=== PATIENT | female | born 1965 | race Hispanic/Latino ===

== ENCOUNTER 2022-06-26 20:17 | Emergency (ER) | payer BC ==
[~2022-06-26] VITALS: Ht 170.2 cm; Wt 104.8 kg
[2022-06-26] MEDS ORDERED: Morphine 4mg INJECTION 4 MG/ML INJ ONE (21:43)
[2022-06-26] MEDS ORDERED: Morphine 2mg Syringe 2 MG/ML SYR IV ONE (21:51)
[2022-06-26] MEDS ORDERED: ONDANSETRON HCL INJ 2MG/ML 2ML 2 MG/ML VIAL IV STA (21:52)
[2022-06-26] MEDS ORDERED: DICYCLOMINE HCL10 MG PO (22:10)
[2022-06-26 22:17] VITALS: BP 140/86
== END 2022-06-26 22:17 | disposition home or self-care (01) ==
LOC: FSED 20:32
DX: R10.31 Right lower quadrant pain (principal); M54.50 Low back pain, unspecified; K57.30 Diverticulosis of large intestine without perforation or abscess without bleeding; R16.1 Splenomegaly, not elsewhere classified
CPT/HCPCS: 74176; 80048; 80076; 81003; 85025; 96374; 96376; 99284; J2270; J2405

== ENCOUNTER 2024-06-30 10:23 | Emergency (ER) | payer BC, OTHER ==
[~2024-06-30] VITALS: Ht 170.2 cm; Wt 96.3 kg
[~2024-06-30 10:23] MED LIST: DICYCLOMINE HCL10 MG PO
[2024-06-30] MEDS ORDERED: NEURONTIN100 MG PO (11:12)
[2024-06-30] MEDS ORDERED: HYDROCODON-ACE1 EAC9 (11:12)
[2024-06-30] MEDS ORDERED: TIZANIDINE HCL4 M1 PO (11:12)
[2024-06-30] MEDS ORDERED: KEFLEX125 MG/5 M PO (11:13)
[2024-06-30 11:24] VITALS: PULSE 65; RESP 16; TEMP 97.4; O2SAT 95
== END 2024-06-30 11:24 | disposition home or self-care (01) ==
LOC: FSED 10:35
DX: R30.0 Dysuria (principal); N30.90 Cystitis, unspecified without hematuria; E11.9 Type 2 diabetes mellitus without complications
CPT/HCPCS: 81003; 99283